=== PATIENT | male | born 1970 ===

== ENCOUNTER 2022-05-27 04:27 | Day surgery (SDC) | payer OTHER ==
[2022-05-26 08:56] VITALS: BMI 33.3
[2022-05-27 08:37] VITALS: TEMP 98
[2022-05-27 13:00] VITALS: BP 100/59; PULSE 71; RESP 19
== END 2022-05-27 09:20 | disposition home or self-care (01) ==
LOC: JASU-ENDO 04:27
PROVIDERS: ATTEND Internal Medicine Gastroenterology
PROC: 0DJD8ZZ Inspection of Lower Intestinal Tract, Via Natural or Artificial Opening Endoscopic (ICD-10-PCS; principal; 2022-05-27 08:45)
DX: Z12.11 Encounter for screening for malignant neoplasm of colon (principal)